=== PATIENT | male | born 1990 | race Caucasian/White ===

== ENCOUNTER 2024-02-13 07:49 | Inpatient (IN) | payer BC, MEDICAID ==
[~2024-02-13] VITALS: Ht 172.7 cm; Wt 63.5 kg
[2024-02-13 08:19] LABS: BASOPHILS # (AUTO) 0.05 K/uL (0.00-0.20); BASOPHILS % (AUTO) 0.7 % (0.0-5.0); EOSINOPHILS # (AUTO) 0.05 K/uL (0.00-0.70); EOSINOPHILS % (AUTO) 0.7 % (0.0-8.0); HEMATOCRIT 43.8 % (42-54); IMMATURE GRANULOCYTE ABSOLUTE 0.01 K/uL (0-1); LYMPHOCYTES # (AUTO) 3.4 K/uL (1.0-4.8); LYMPHOCYTES % (AUTO) 49.3 % (21.0-51.0); MEAN CORPUSCULAR HEMOGLOBIN 29.6 pg (27.0-33.0); MEAN CORPUSCULAR HGB CONC 33.3 g/dL (32.0-36.0); MEAN CORPUSCULAR VOLUME 88.7 fL (79-99); MONOCYTES # (AUTO) 0.4 K/uL (0.1-1.0); MONOCYTES % (AUTO) 6.2 % (3.0-13.0); PLATELET COUNT (AUTO) 239 K/uL (130-400); RED BLOOD CELL COUNT(AUTO) 4.94 MIL/uL (4.50-6.20); RED CELL DISTRIBUTION WIDTH 12.5 % (11.0-15.5)
[2024-02-13 08:44] LABS: BILIRUBIN,TOTAL 0.4 mg/dL (0.2-1.0); CREATININE 0.8 mg/dL (0.5-1.3); TOTAL PROTEIN, SERUM 7.4 g/dL (6.0-8.3)
[2024-02-13] MEDS: ONDANSETRON 4MG INJ IVP ONE ×2 (09:11→13:29)
[2024-02-13] MEDS: PANTOPRAZOLE 40 MG/VIAL IVP ONE (09:12)
[2024-02-13] MEDS: 0.9%NACL 1000ML 1,000 ML IV ONE (09:12)
[2024-02-13] MEDS: morPHINE 2 MG SYG IVP ONE (09:13)
[2024-02-13] MEDS: 0.9% NACL 500ML IV.SOLN 500 ML IV ONE (11:30)
[2024-02-13] MEDS: PROMETHAZINE HCL 25 MG/ML 1ML AMPULE IM ONE (11:30)
[2024-02-13] MEDS: 0.9%NACL 1000ML 1,000 ML IV SCH (18:19)
[2024-02-13 20:40] VITALS: BP 107/70; PULSE 62; RESP 18; TEMP 97.8; O2SAT 98
[2024-02-13] MEDS: 0.9%NACL 1000ML 1,000 ML IV STA (21:14)
[2024-02-13] MEDS ORDERED: ONDA-243 PO (21:32)
== END 2024-02-13 22:00 | disposition home or self-care (01) | DRG 641 ==
LOC: EDH 07:49 → EDHIP 14:47
PROVIDERS: ADMIT Hospitalist; ATTEND Hospitalist
DX: E87.8 Other disorders of electrolyte and fluid balance, not elsewhere classified (principal); E86.0 Dehydration; E87.6 Hypokalemia; E87.0 Hyperosmolality and hypernatremia; F41.9 Anxiety disorder, unspecified; G47.00 Insomnia, unspecified; K59.00 Constipation, unspecified
CPT/HCPCS: 36415; 74176; 80053; 83690; 85025; 93005; 96361; 96372; 96374; 96375; 96376; G0378; J2270; J2405; J2470; J2550